=== PATIENT | male | born 1955 | race African-American/Black ===

== ENCOUNTER 2016-07-13 14:31 | Emergency (ER) | payer MEDICARE, OTHER, MEDICAID ==
--- NOTE | 2016-07-13 14:45 | ER Document Report ---
ED Medical Screen (RME) - General Chief Complaint: Psych Problem Stated Complaint: PSYCH EVAL Time Seen by Provider: 07/13/16 14:43 Notes: Patient is a 60-year-old male, past medical history schizophrenia, chronic alcohol use, presents with his sister after he ran away from his long-term. His sister tried calling the long-term, but is unable to get through. The patient says he drinks a 6 or 12 pack of beer every day and he drank this morning. He has not taken his psychiatric medications since leaving the long-term and he does not have them at home. Denies suicidal ideation, homicidal ideation, hallucinations, nausea or vomiting. PE: NAD. Cooperative. I have greeted and performed a rapid initial assessment of this patient. A comprehensive ED assessment and evaluation of the patient, analysis of test results and completion of the medical decision making process will be conducted by additional ED providers. - Related Data Allergies/Adverse Reactions: No Known Allergies Allergy (Verified 07/13/16 14:37) Past Medical History Endocrine Medical History: Reports: Hx Diabetes Mellitus Type 2 Renal/ Medical History: Denies: Hx Peritoneal Dialysis - Immunizations Hx Diphtheria, Pertussis, Tetanus Vaccination: Yes - unk Physical Exam - Vital signs Vitals: Temp Pulse Resp BP Pulse Ox 99.2 F 97 18 184/106 H 97 07/13/16 14:37 07/13/16 14:37 07/13/16 14:37 07/13/16 14:37 07/13/16 14:37 Course - Vital Signs Vital signs: Temp Pulse Resp BP Pulse Ox 99.2 F 97 18 184/106 H 97 07/13/16 14:37 07/13/16 14:37 07/13/16 14:37 07/13/16 14:37 07/13/16 14:37
--- NOTE | 2016-07-13 15:21 | ER Document Report ---
ED Psych Disorder / Suicide - General Chief Complaint: Psych Problem Stated Complaint: PSYCH EVAL Time Seen by Provider: 07/13/16 14:43 Information source: Patient, Relative Notes: This is a 60-year-old male with history of schizophrenia and alcohol abuse who presents after leaving his halfway in [place] and getting on a bus after drinking and showing up at his sister's house in town here. I spoke with Sheryl at [phone] and she reports that he would not tell where he was going this time. I given him $40 but it was unclear how he got to the bus station which apparently is a fair distance away as well as had enough money to get to [facility]. History is also from his sister and brother-in- law who live here. He has auditory hallucinations and staff had reported he had been aggravating other halfway residence as well. The patient denies any suicidal homicidal ideation and denies hallucinations now but history is limited as he seems somewhat agitated. He does admit to alcohol and tobacco use. Denies any other drug use. Similar episode a week ago where the police were contacted and brought him back to the halfway. His sister believes she is not taking his medications which they are going to fax to us. - Related Data Allergies/Adverse Reactions: No Known Allergies Allergy (Verified 07/13/16 14:37) Home Medications: Current Home Medications Benztropine Mesylate [Benztropine Mesylate 2 mg Tablet] 2 mg PO Q12 07/14/16 [ History] Brimonidine Tartrate [Alphagan 0.2% Oph Soln 5 ml] 1 drop OU TID 07/14/16 [ History] Cholecalciferol (Vitamin D3) [Vitamin D3 1000 Unit Tablet] 1,000 unit PO DAILY 07/14/16 [History] Donepezil HCl [Aricept] 10 mg PO QHS 07/14/16 [History] Dorzolamide HCl [Trusopt Plus 2% Oph Soln 10 Ml] 1 drop OU TID 07/14/16 [History ] Gabapentin [Neurontin 300 mg Capsule] 300 mg PO Q8 07/14/16 [History] Latanoprost [Xalatan 0.005% Oph Soln 2.5 ml] 1 drop OU QHS 07/14/16 [History] Lisinopril [Prinivil 5 mg Tablet] 5 mg PO DAILY 07/14/16 [History] Metformin HCl [Glucophage] 500 mg PO BIDACBS 07/14/16 [History] Olanzapine [Zyprexa] 20 mg PO DAILY 07/14/16 [History] Sertraline HCl [Zoloft] 100 mg PO QHS 07/14/16 [History] Tizanidine HCl [Zanaflex 4 Mg Tablet] 4 mg PO TID 07/14/16 [History] Trazodone HCl [Desyrel] 200 mg PO QHS 07/14/16 [History] Past Medical History - Social History Smoking Status: Current Every Day Smoker Chew tobacco use (# tins/day): No Frequency of alcohol use: Heavy Drug Abuse: None Family History: Reviewed & Not Pertinent Patient has suicidal ideation: No Patient has homicidal ideation: No - Past Medical History Cardiac Medical History: Reports: Hx Hypertension Endocrine Medical History: Reports: Hx Diabetes Mellitus Type 2 Renal/ Medical History: Denies: Hx Peritoneal Dialysis Psychiatric Medical History: Reports: Hx Schizophrenia - Immunizations Hx Diphtheria, Pertussis, Tetanus Vaccination: Yes - unk Review of Systems - Review of Systems -: Yes All other systems reviewed and negative Physical Exam - Vital signs Vitals: Temp Pulse Resp BP Pulse Ox 99.2 F 97 18 184/106 H 97 07/13/16 14:37 07/13/16 14:37 07/13/16 14:37 07/13/16 14:37 07/13/16 14:37 Interpretation: Hypertensive - Notes Notes: GENERAL: VS as per nursing doc. Well-appearing, well-nourished and in no acute distress. But appears slightly anxious HEAD: Atraumatic, normocephalic EYES: Pupils equal round and reactive to light, extraocular movements intact, sclera anicteric, no conjunctival injection or discharge. ENT: Nares patent, oropharynx clear without exudates, moist mucous membranes. NECK: Normal range of motion, supple without lymphadenopathy. LUNGS: Breath sounds coarse bilaterally. No wheezes rales or rhonchi. HEART: Regular rate and rhythm without murmurs. Peripheral pulses equal. ABDOMEN: Soft, non-tender. BACK: Normal to inspection EXTREMITIES: Normal appearance without edema. NEUROLOGICAL: Cranial nerves grossly intact. Normal speech. Normal sensory and motor exams. Gait intact. PSYCH: Oriented 3. Calm, directable. Increased psychomotor agitation, feels the need to get up and walk in the room. Unclear if he is having hallucinations which are not completely evident.. No reported suicidal or homicidal ideation. Normal thought content. Speech is appropriate. SKIN: Warm, dry. No lacerations. Course - Re-evaluation Re-evalutation: 07/13/16 18:07 Patient has not been taking his medications for 2 days. He is cleared medically without acute medical emergency condition for further psychiatric evaluation. His medications have been prescribed. - Vital Signs Vital signs: Temp Pulse Resp BP Pulse Ox 98.2 F 63 16 130/77 H 96 07/14/16 22:16 07/14/16 22:16 07/14/16 22:16 07/14/16 22:16 07/14/16 22:16 - Laboratory Result Diagrams: 07/13/16 14:48 07/13/16 14:48 Laboratory results interpreted by me: 07/13/16 07/13/16 14:48 14:48 WBC 13.5 H Hgb 11.9 L Hct 36.0 L MCV 76 L MCH 25.1 L RDW 15.1 H Absolute Neutrophils 10.5 H Glucose 168 H Alkaline Phosphatase 174 H Total Protein 8.5 H Salicylates < 1.0 L Acetaminophen < 10 L - EKG Interpretation by Ca EKG shows normal: Sinus rhythm - Rate 88, normal left atrial enlargement, specific ST abnormalities without clear ischemia
[2016-07-13 16:06] LABS: ALANINE AMINOTRANSFERASE 26 U/L (21-72); ALBUMIN 4.2 g/dL (3.5-5.0); ALCOHOL 29 mg/dL (NONE DETECTED); ALKALINE PHOSPHATASE 174 U/L (38-126); ANION GAP 15 (5-19); ASPARTATE AMINO TRANSFERASE 30 U/L (17-59); BILIRUBIN,DIRECT 0.4 mg/dL (0.0-0.4); BILIRUBIN,TOTAL 0.5 mg/dL (0.2-1.3); BLOOD UREA NITROGEN 11 mg/dL (7-20); CALCIUM 9.7 mg/dL (8.4-10.2); CARBON DIOXIDE 26 mmol/L (22-30); CHLORIDE 103 mmol/L (98-107); CREATININE RESULT 0.69 mg/dL (0.52-1.25); GLUCOSE 168 mg/dL (75-110); POTASSIUM 4.2 mmol/L (3.6-5.0); SODIUM 144.3 mmol/L (137-145); TOTAL PROTEIN 8.5 g/dL (6.3-8.2)
[2016-07-13 16:09] LABS: ABSOLUTE BASOPHILS # (AUTO) 0.1 10^3/uL (0.0-0.2); ABSOLUTE EOSINOPHILS # (AUTO) 0.1 10^3/uL (0.0-0.6); ABSOLUTE MONOCYTES (AUTO) 0.9 10^3/uL (0.1-1.4); ABSOLUTE NEUT (AUTO) 10.5 10^3/uL (1.7-8.2); BASOPHILS % (AUTO) 0.5 % (0-2); EOSINOPHILS % (AUTO) 0.6 % (0-6); HEMOGLOBIN 11.9 g/dL (13.5-17.0); HGB HCT DIFFERENCE -0.3; LYMPHOCYTES % (AUTO) 14.9 % (13-45); MEAN CORPUSCULAR HEMOGLOBIN 25.1 pg (27.0-33.4); MEAN CORPUSCULAR VOLUME 76 fl (80-97); MONOCYTES % (AUTO) 6.5 % (3-13); RED BLOOD COUNT 4.72 10^6/uL (4.35-5.55); RED CELL DISTRIBUTION WIDTH 15.1 % (11.5-14.0); SEGMENTED NEUTROPHILS % (AUTO) 77.5 % (42-78); WHITE BLOOD COUNT 13.5 10^3/uL (4.0-10.5)
--- NOTE | 2016-07-13 16:19 | EKG REPORT ---
SEVERITY:- ABNORMAL ECG - SINUS RHYTHM PROBABLE LEFT ATRIAL ABNORMALITY BORDERLINE LEFT AXIS DEVIATION : Confirmed by: Flower Lopez MD 13-Jul-2016 16:18:01
[2016-07-13] MEDS ORDERED: OLANZAPINE 5 MG TABLET PO ONE (16:40)
[2016-07-13] MEDS ORDERED: LISINOPRIL 5 MG TABLET PO ONE (16:40)
[2016-07-13] MEDS ORDERED: GABAPENTIN 300 MG CAPSULE PO ONE (16:42)
[2016-07-13] MEDS ORDERED: BENZTROPINE MESYLATE 1 MG TABLET PO ONE (16:42)
[2016-07-13] MEDS ORDERED: METFORMIN HCL 500 MG TABLET PO ONE (16:42)
[2016-07-13] MEDS ORDERED: TIZANIDINE HCL 4 MG TABLET PO ONE (16:43)
--- NOTE | 2016-07-13 17:16 | PSYCHOLOGICAL NOTE ---
Psych Note - Psych Note Psych Note: Patient is a 60-year-old male, past medical history schizophrenia, chronic alcohol use, presents with his sister after he ran away from his skilled nursing. His sister tried calling the skilled nursing, but is unable to get through. The patient says he drinks a 6 or 12 pack of beer every day and he drank this morning. He has not taken his psychiatric medications since leaving the skilled nursing and he does not have them at home. Patient disclosed that he has not taken his medication for 2 days. He continued disclosed "I like to walk sometimes I do not know how to stop." Patient states that he normally takes his medication at his skilled nursing. He continued disclosed that he has no problems taking his medication and would like to stay and have them. Patient sister disclosed the patient takes medication to "feel better." She continued disclosed that he has blood pressure, sugar, and schizophrenia issues. She states the patient left his skilled nursing and came down to home. She states that he likes to wander and it can be scary. She continues states that this is not the first time her brother has done this. She continued disclosed that she is hoping [facility] will be able to assist her in returning her brother to his skilled nursing. Patient is alert and orientated to person place time and circumstance. Mood is euthymic with congruent affect. Patient is noted with psychomotor agitation. patient denies suicidal and homicidal ideation. Patient denies current auditory visual hallucinations; no delusions are noted. Thought process is organized and linear. Conversational speech is halting and limited. Eye contact was well-maintained. Intellectual abilities appear to be below average range. Attention and concentration are fair. Insight, judgment, impulse control are poor. 298.9 (F29) unspecified schizophrenia spectrum and other psychotic disorder per history provided by patient and family 303.90 (F10.20) alcohol related disorders; moderate R/O 319 (F79) unspecified intellectual disability V40.31 (Z91.83) wandering associated with a mental disorder Impression\\plan: Patient is recommended for mental health hold for observation overnight. Patient has been off his medication for 2 days. Patient states he would like to get back on his medication. Patient has history of wandering and current episode as a result of leaving his skilled nursing in [place] and coming to his sister's home in the local area. Patient will be reevaluated. Dr. Trevino was consulted on the care and management of this patient attending physician is in agreement with recommendations and disposition.
[2016-07-13 17:54] LABS: URINE BARBITURATES SCREEN NEGATIVE; URINE METHADONE SCREEN NEGATIVE; URINE OPIATES LOW NEGATIVE; URINE PHENCYCLIDINE SCREEN NEGATIVE
[2016-07-13] MEDS ORDERED: DORZOLAMIDE HCL 2% OPH SOLN 10 ML OU SCH (18:30)
[2016-07-13] MEDS ORDERED: BRIMONIDINE TARTRATE 0.2% OPH SOLN 5 ML OU SCH (18:30)
[2016-07-13] MEDS ORDERED: BRIMONIDINE TARTRATE 0.2% OPH SOLN 5 ML OU ONE (20:00)
[2016-07-13] MEDS ORDERED: DORZOLAMIDE HCL 2% OPH SOLN 10 ML OU ONE (20:00)
[2016-07-13] MEDS: LATANOPROST 0.005% OPH SOLN 2.5 ML OU SCH (22:20)
[2016-07-13] MEDS: DONEPEZIL HCL 5 MG TABLET PO SCH (22:20)
[2016-07-13] MEDS: SERTRALINE HCL 50 MG TABLET PO SCH (22:20)
[2016-07-14] MEDS: DORZOLAMIDE HCL 2% OPH SOLN 10 ML OU SCH ×3 (11:25→18:45)
[2016-07-14] MEDS: BRIMONIDINE TARTRATE 0.2% OPH SOLN 5 ML OU SCH ×3 (11:26→18:46)
[2016-07-14] MEDS: LATANOPROST 0.005% OPH SOLN 2.5 ML OU SCH (22:07)
[2016-07-14] MEDS: SERTRALINE HCL 50 MG TABLET PO SCH (22:07)
[2016-07-14] MEDS: DONEPEZIL HCL 5 MG TABLET PO SCH (22:07)
--- NOTE | 2016-07-15 09:41 | ER Document Report ---
Doctor's Note Notes: 07/15/16 09:41 Patient is sleeping at this time. Psych is trying to coordinate a way to get him back to his snf in [place].
--- NOTE | 2016-07-15 09:50 | PSYCHOLOGICAL NOTE ---
Psych Note - Psych Note Psych Note: Patient is a 60-year-old male, past medical history schizophrenia, chronic alcohol use, presents with his sister after he ran away from his m[facility]. His sister tried calling the mcfp, but is unable to get through. The patient says he drinks a 6 or 12 pack of beer every day and he drank this morning. He has not taken his psychiatric medications since leaving the mcfp and he does not have them at home. Patient is calm and has no concerns. Patient asks when he will be able to go home. Clinician contacted [facility] Sheryl at [phone]. She disclosed they are a "small mcfp" and do not have a transportation services. She continued to disclose that she will talk with the drop wire operator of the mcfp to see if she can get permission to drive and picking machine operator the patient. Clinician spoke with patient's sister, she states she does not have the money to get the patient a bus ticket back to [place]. She continued to disclose that she does not get paid until next week Monday and does not have enough gas to transport the patient to his m[facility]p. She states that she needs to work and she feels he needs to be watched since he drinks. Patient is alert and orientated to person place time and circumstance. Mood is euthymic with congruent affect. Patient is noted with psychomotor agitation. patient denies suicidal and homicidal ideation. Patient denies current auditory visual hallucinations; no delusions are noted. Thought process is organized and linear. Conversational speech is halting and limited. Eye contact was well-maintained. Intellectual abilities appear to be below average range. Attention and concentration are fair. Insight, judgment, impulse control are poor. 298.9 (F29) unspecified schizophrenia spectrum and other psychotic disorder per history provided by patient and family 303.90 (F10.20) alcohol related disorders; moderate R/O 319 (F79) unspecified intellectual disability V40.31 (Z91.83) wandering associated with a mental disorder Impression\\plan: Patient is psychatrically cleared for discharge. At this time , the patient and family is unable to secure transportation to his [place] [facility]. Patient has history of wandering and current episode as a result of leaving his mcfp in [place] and coming to his sister's home in the local area. Dr. Trevino was consulted on the care and management of this patient attending physician is in agreement with recommendations and disposition.
[2016-07-15] MEDS: BRIMONIDINE TARTRATE 0.2% OPH SOLN 5 ML OU SCH (10:01)
[2016-07-15] MEDS: DORZOLAMIDE HCL 2% OPH SOLN 10 ML OU SCH (10:01)
--- NOTE | 2016-07-15 10:15 | ER Document Report ---
ED Psych Disorder / Suicide - General Chief Complaint: Psych Problem Stated Complaint: PSYCH EVAL Time Seen by Provider: 07/13/16 14:43 - HPI Associated symptoms: Normal affect, Normal mood Notes: Patient is a 60-year-old male, past medical history schizophrenia, chronic alcohol use, presents with his sister after he ran away from his halfway. His sister tried calling the halfway, but is unable to get through. The patient says he drinks a 6 or 12 pack of beer every day and he drank this morning. He has not taken his psychiatric medications since leaving the halfway and he does not have them at home. Sheryl at [phone] states they will be able to meat pickler patient tomorrow morning. Clinician spoke with patient's sister she states she will come and meat pickler patient now and allow the halfway to pick the patient up from them tomorrow. Patient is alert and orientated to person place time and circumstance. Mood is euthymic with congruent affect. Patient is noted with psychomotor agitation. patient denies suicidal and homicidal ideation. Patient denies current auditory visual hallucinations; no delusions are noted. Thought process is organized and linear. Conversational speech is halting and limited. Eye contact was well-maintained. Intellectual abilities appear to be below average range. Attention and concentration are fair. Insight, judgment, impulse control are poor. 298.9 (F29) unspecified schizophrenia spectrum and other psychotic disorder per history provided by patient and family 303.90 (F10.20) alcohol related disorders; moderate R/O 319 (F79) unspecified intellectual disability V40.31 (Z91.83) wandering associated with a mental disorder Impression\\plan: Patient is psychiatrically cleared for discharge. At this time , the patient's family will be meat pickler the patient and allow him to visit with them until the halfway comes to meat pickler tomorrow. Patient's sister states she will call the halfway and let them know they can come to her home and meat pickler the patient. Dr. Trevino was consulted on the care and management of this patient attending physician is in agreement with recommendations and disposition. - Related Data Allergies/Adverse Reactions: No Known Allergies Allergy (Verified 07/13/16 14:37) Home Medications: Current Home Medications Benztropine Mesylate [Benztropine Mesylate 2 mg Tablet] 2 mg PO Q12 07/14/16 [ History] Brimonidine Tartrate [Alphagan 0.2% Oph Soln 5 ml] 1 drop OU TID 07/14/16 [ History] Cholecalciferol (Vitamin D3) [Vitamin D3 1000 Unit Tablet] 1,000 unit PO DAILY 07/14/16 [History] Donepezil HCl [Aricept] 10 mg PO QHS 07/14/16 [History] Dorzolamide HCl [Trusopt Plus 2% Oph Soln 10 Ml] 1 drop OU TID 07/14/16 [History ] Gabapentin [Neurontin 300 mg Capsule] 300 mg PO Q8 07/14/16 [History] Latanoprost [Xalatan 0.005% Oph Soln 2.5 ml] 1 drop OU QHS 07/14/16 [History] Lisinopril [Prinivil 5 mg Tablet] 5 mg PO DAILY 07/14/16 [History] Metformin HCl [Glucophage] 500 mg PO BIDACBS 07/14/16 [History] Olanzapine [Zyprexa] 20 mg PO DAILY 07/14/16 [History] Sertraline HCl [Zoloft] 100 mg PO QHS 07/14/16 [History] Tizanidine HCl [Zanaflex 4 Mg Tablet] 4 mg PO TID 07/14/16 [History] Trazodone HCl [Desyrel] 200 mg PO QHS 07/14/16 [History] Past Medical History - General Information source: Patient, Relative - Social History Smoking Status: Current Every Day Smoker Chew tobacco use (# tins/day): No Frequency of alcohol use: Heavy Drug Abuse: None Family History: Reviewed & Not Pertinent Patient has suicidal ideation: No Patient has homicidal ideation: No - Past Medical History Cardiac Medical History: Reports: Hx Hypertension Endocrine Medical History: Reports: Hx Diabetes Mellitus Type 2 Renal/ Medical History: Denies: Hx Peritoneal Dialysis Psychiatric Medical History: Reports: Hx Schizophrenia - Immunizations Hx Diphtheria, Pertussis, Tetanus Vaccination: Yes - unk Physical Exam - Vital signs Vitals: Temp Pulse Resp BP Pulse Ox 99.2 F 97 18 184/106 H 97 07/13/16 14:37 07/13/16 14:37 07/13/16 14:37 07/13/16 14:37 07/13/16 14:37 Course - Vital Signs Vital signs: Temp Pulse Resp BP Pulse Ox 98 F 70 16 158/95 H 96 07/15/16 07:17 07/15/16 07:17 07/15/16 07:17 07/15/16 07:17 07/15/16 07:17 - Laboratory Result Diagrams: 07/13/16 14:48 07/13/16 14:48 Laboratory results interpreted by me: 07/13/16 07/13/16 14:48 14:48 WBC 13.5 H Hgb 11.9 L Hct 36.0 L MCV 76 L MCH 25.1 L RDW 15.1 H Absolute Neutrophils 10.5 H Glucose 168 H Alkaline Phosphatase 174 H Total Protein 8.5 H Salicylates < 1.0 L Acetaminophen < 10 L Discharge - Discharge Clinical Impression: Schizophrenia Qualifiers: Schizophrenia type: other Qualified Code(s): F20.89 - Other schizophrenia; F20.8 - Other schizophrenia Condition: Stable Disposition: HOME, SELF-CARE Additional Instructions: Schizophrenia Schizophrenia is a chemical disorder that affects how the brain functions. The exact cause is unknown, but it tends to run in families. It is NOT caused by emotional trauma. Schizophrenia causes disordered thinking, including unusual beliefs and inability to "process" happenings around the patient. Patients with schizophrenia benefit greatly from medicine. These medicines are called antipsychotics. Never stop the medicine without the doctor 's approval. Counselling may help the patient deal with his disease. Schizophrenics require a very ordered environment. Stresses and sudden changes may bring out symptoms. Drugs and alcohol abuse may become problems. Contact the counsellor or crisis line if there are thoughts of suicide or of harming others, or if you become aware of unusual thoughts or beliefs Please follow up with your primary mental health provider in [place] in 3-5 days. AT ANY TIME, IF YOUR SYMPTOMS CHANGE SIGNIFICANTLY OR WORSEN OR YOU DEVELOP NEW SYMPTOMS, RETURN TO THE EMERGENCY DEPARTMENT IMMEDIATELY FOR RE-EVALUATION. OUR GOAL IS TO PROVIDE EXCELLENT MEDICAL CARE! WE HOPE THAT WE HAVE MET YOUR EXPECTATIONS DURING YOUR EMERGENCY DEPARTMENT VISIT AND THAT YOU FEEL YOU HAVE RECEIVED EXCELLENT CARE!
[2016-07-15 12:29] VITALS: BP 159/88
== END 2016-07-15 12:29 | disposition home or self-care (01) ==
LOC: ER 14:31
DX: F20.9 Schizophrenia, unspecified (principal); Z91.83 Wandering in diseases classified elsewhere; T50.906A Underdosing of unspecified drugs, medicaments and biological substances, initial encounter; Z91.138 Patient's unintentional underdosing of medication regimen for other reason; Z91.14 Patient's other noncompliance with medication regimen; F17.200 Nicotine dependence, unspecified, uncomplicated; I10 Essential (primary) hypertension; E11.9 Type 2 diabetes mellitus without complications; Z72.89 Other problems related to lifestyle; R94.31 Abnormal electrocardiogram [ECG] [EKG]
CPT/HCPCS: 93005; 99285; 36415; 80307 ×4; 85025; 80053; 93010; A9270 ×10; J3490 ×5